=== PATIENT | female | born 1945 | race Caucasian/White ===

== ENCOUNTER 2018-09-15 14:49 | Inpatient (IN) | payer OTHER ==
[~2018-09-15] VITALS: Ht 165.1 cm; Wt 78.9 kg
[2018-09-15 14:49] VITALS: BP 169/87
[2018-09-15 15:10] LABS: ABSOLUTE NEUTROPHILS 5.9 thou/uL (1.4-8.2); BASOPHILS 0.1 % (0.0-2.0); HEMATOCRIT 38.7 % (37.0-47.0); HEMOGLOBIN 13.4 gm/dL (12.0-15.0); LYMPHOCYTES 2.1 % (24.0-44.0); MCH 31.7 pg (26.0-34.0); MCHC 34.5 g/dL (28.0-37.0); MCV 91.9 fL (80.0-100.0); MONOCYTES 0.9 % (1.0-8.0); PLATELET COUNT 167 thou/uL (150-400); POLYS 96.9 % (36.0-66.0); RBC 4.21 mil/uL (4.20-5.00); WBC 6.1 thou/uL (4.0-11.0)
[2018-09-15 15:17] LABS: BE(vivo) -6.4 mmol/L (-2 to +3); HCO3 17.3 mmol/L (22.0-26.0); PCO2 VENOUS 29.6 mmHg (41.0-51.0); PO2 VENOUS 43.4 mmHg (35.0-45.0)
[2018-09-15 15:23] LABS: CALCIUM 9.8 mg/dL (8.5-10.1); POTASSIUM 3.7 mmol/L (3.5-5.1)
[2018-09-15] MEDS ORDERED: LOPRESSOR50 PO (15:27)
[2018-09-15] MEDS ORDERED: PLAVIX 75 MG TA75 M1 PO (15:28)
[2018-09-15] MEDS ORDERED: CRESTOR20 MG PO (15:28)
[2018-09-15] MEDS ORDERED: LISINOPRIL5 MG PO (15:28)
[2018-09-15 15:38] LABS: ALBUMIN 3.8 g/dL (3.4-5.0); TOTAL BILIRUBIN 1.9 mg/dL (<0.1-1.0); TOTAL PROTEIN 8.1 g/dL (6.4-8.2); TROPONIN-I 0.08 ng/mL (<0.06)
[2018-09-15 18:10] VITALS: BP 142/67
[2018-09-15 18:31] VITALS: BP 93/47
[2018-09-15 18:41] VITALS: BP 95/53
[2018-09-15 21:30] VITALS: BP 105/56
--- NOTE | 2018-09-16 04:00 | NUR ---
Patient making slow progress towards outcome goals. No active signs of bleeding. Kept NPO, mouth swabs to keep mouth moist. Urine output concentrated. IVFluids and Protonix drip infusing.
[2018-09-16 04:48] LABS: HEMATOCRIT 31.1 % (37.0-47.0); HEMOGLOBIN 10.8 gm/dL (12.0-15.0); MCH 31.8 pg (26.0-34.0); MCHC 34.7 g/dL (28.0-37.0); MCV 91.6 fL (80.0-100.0); RBC 3.39 mil/uL (4.20-5.00); RDW 14.5 % (10.5-14.5); WBC 8.3 thou/uL (4.0-11.0)
[2018-09-16 05:01] LABS: CALCIUM 8.6 mg/dL (8.5-10.1); CREATININE 1.6 mg/dL (0.6-1.0); POTASSIUM 3.8 mmol/L (3.5-5.1)
[2018-09-16 07:20] VITALS: BP 128/46
--- NOTE | 2018-09-16 10:27 | EKG ---
[address] [place] [address] ELECTROCARDIOGRAM REPORT Name: CRISTIANO JOSHI Room #: 352-P ADM IN M.R.#: [id number] ������������������ Admission: 09/15/18 ������������������ Attend Phys: Georges Poe MD Discharge: ������������������ Date of : 45 Report #: [id number] ����������������������������������������������������������������� [id number] THIS REPORT FOR: //name// [facility] ED Test Date: 2018-09-15 Test Time: 14:54:06 Pat Name: CRISTIANO JOSHI Department: Room: [facility] Gender: F Manager Group Home: : 1945 Requested By: Brenda Allen Order Number: [id number] MD: Louis Gallego Measurements Intervals [place] Rate: 119 P: 61 [place]: 171 QRS: 7 QRSD: 81 T: 85 QT: 297 QTc: 418 Interpretive Statements Sinus tachycardia Borderline repolarization abnormality Compared to ECG 07/10/2003 21:57:55 heart rate has increased Nonspecific ST segment abnormality is present Electronically Signed On 09-16-2018 10:27:23 CDT by Louis Gallego [email or web address] ��������������������������������������������� <ELECTRONICALLY SIGNED> ���������������������������������������� By: Louis Gallego MD, [facility] ��������������������������������������������� 09/16/18 1027 145 53 Louis Gallego MD, [facility] /EPI
--- NOTE | 2018-09-16 14:02 | NUR ---
PATIENT HAS SLEPT PART OF THE DAY. SHE DID COMPLAIN OF LOWER BACK PAIN THIS AM AND PRN PAIN MED WAS ADMINISTERED UP TO TWO TIMES BEFORE SHE HAD RELIEF. SHE IS ALERT ORIENTED X4. WILL BE HAVING EGD IN AM. EXPLAINED SHE WILL BE NPO POST MIDNIGHT. CONT TO PROGRESS TOWARDS DISCHARGE GOALS.
[2018-09-16 17:12] VITALS: BP 124/55
[2018-09-16 20:56] VITALS: BP 135/53
[2018-09-16 23:20] VITALS: BP 143/60
[2018-09-17 04:08] LABS: HEMATOCRIT 28.9 % (37.0-47.0); HEMOGLOBIN 10.1 gm/dL (12.0-15.0); MCH 31.7 pg (26.0-34.0); MCHC 34.8 g/dL (28.0-37.0); MCV 91.1 fL (80.0-100.0); RBC 3.17 mil/uL (4.20-5.00); RDW 14.4 % (10.5-14.5); WBC 6.7 thou/uL (4.0-11.0)
[2018-09-17 04:17] VITALS: BP 145/72
[2018-09-17 04:19] LABS: ALBUMIN 2.7 g/dL (3.4-5.0); CALCIUM 8.4 mg/dL (8.5-10.1); CREATININE 1.2 mg/dL (0.6-1.0); POTASSIUM 3.3 mmol/L (3.5-5.1); TOTAL BILIRUBIN 1.8 mg/dL (<0.1-1.0); TOTAL PROTEIN 6.4 g/dL (6.4-8.2)
--- NOTE | 2018-09-17 04:22 | NUR ---
Patient making slow progress towards outcome goals. No active signs of bleeding. Low grade temp, positive blood culture, foul smelling urine. Nelia ETIENNEN notified. Started on IV anitbiotics. NPO after MN for EGD. Continues to C/O nausea ans neck pain. Nausea relief from Zofran. Sleeps after Fentanyl. Bp stable. High fall risks, calls appropriate for needs.
[2018-09-17 07:31] VITALS: BP 148/71
[2018-09-17 10:03] LABS: URINE BLOOD 2+ (Negative); URINE CLARITY CLEAR; URINE COLOR YELLOW; URINE GLUCOSE-RANDOM* NEGATIVE (Negative); URINE KETONES 1+ (Negative); URINE LEUKOCYTES-REFLEX NEGATIVE (Negative); URINE NITRITE-REFLEX NEGATIVE (Negative); URINE PROTEIN (DIPSTICK) 2+ (Negative); URINE SPECIFIC GRAVITY 1.025 (1.005-1.035); URINE UROBILINOGEN >= 8.0 E.U./dl (0.2-1.0)
[2018-09-17 10:23] LABS: ICTOTEST (BILI CONFIRMATORY) Negative (Negative); URINE BILIRUBIN NEGATIVE (Negative)
[2018-09-17 10:26] LABS: BACTERIA-REFLEX 1-9 Few /HPF (None Seen); CASTS None Seen /LPF (None Seen); CRYSTALS None Seen /LPF (None Seen); SQUAMOUS 0-3 Few /LPF (0-3); URINE RBC 0-2 Rare /HPF (0-2); URINE WBC-REFLEX 0-5 Rare /HPF (0-5)
--- NOTE | 2018-09-17 14:47 | NUR ---
INITIAL ASSESSMENT: SW reviewed chart and opened case due to length of stay. Pt was admitted from home due to hematemesis. Pt was scheduled to have an EGD today per GI. When pt was in GI lab, pt went into A-fib with RVR. Cardiology consulted. Meds being adjusted. Will attempt EGD tomorrow. SW met with pt, spouse and family at bedside. Introduced role of SW. Pt is alert/orientated x 4. Pt report she lives at home with her , who is in good health. Prior to admission, pt was independent with ADLs. No use of DME. No hx of HH services or SNF/Rehab placement. Pt's PCP is Dr. Francisca Dickson. Plan is for pt to discharge home when medically stable. SW is following to assist as needed with discharge planning.
[2018-09-17 15:37] VITALS: BP 130/69
--- NOTE | 2018-09-17 17:19 | NUR ---
Assumed patient care at 0700. a/o x4. egd on hold due to hr went to 140-150. cardioloy consulted. c/o back pain. up with stb assisted. slowly towards poc goals.
--- NOTE | 2018-09-17 18:06 | EKG ---
[address] [address] ELECTROCARDIOGRAM REPORT Name: CRISTIANO JOSHI Room #: 352-P ADM IN M.R.#: [id number] ������������������ Admission: 09/15/18 ������������������ Attend Phys: Georges Poe MD Discharge: ������������������ Date of : 45 Report #: [id number] ����������������������������������������������������������������� [id number] THIS REPORT FOR: //name// [facility] Test Date: 2018-09-17 Test Time: 12:09:53 Pat Name: CRISTIANO JOSHI Department: Room: 352 Gender: F Grader Marker: RUBY POWELL : 1945 Requested By: Gavino Renae Order Number: [id number] MD: Linwood Prince Measurements Intervals [place] Rate: 94 P: 57 [place]: 139 QRS: -3 QRSD: 84 T: 30 QT: 359 QTc: 449 Interpretive Statements Sinus tachycardia Atrial premature complex Anteroseptal infarct, age indeterminate Compared to ECG 09/15/2018 14:54:06 Atrial premature complex(es) now present Myocardial infarct finding now present Electronically Signed On 09-17-2018 18:06:24 CDT by Linwood Prince [email or web address] ��������������������������������������������� <ELECTRONICALLY SIGNED> ���������������������������������������� By: Linwood Prince MD ��������������������������������������������� 09/17/18 1806 1209 1209 Linwood Prince MD /EPI
--- NOTE | 2018-09-17 18:09 | EKG ---
[address] [address] ELECTROCARDIOGRAM REPORT Name: CRISTIANO JOSHI Room #: 352-P ADM IN M.R.#: [id number] ������������������ Admission: 09/15/18 ������������������ Attend Phys: Georges Poe MD Discharge: ������������������ Date of : 45 Report #: [id number] ����������������������������������������������������������������� [id number] THIS REPORT FOR: //name// [facility] Test Date: 2018-09-17 Test Time: 17:46:01 Pat Name: CRISTIANO JOSHI Department: Room: 352 Gender: F Internal Sales Engineer: Jojo DASILVA : 1945 Requested By: Ava Koo Order Number: [id number] MD: Linwood Prince Measurements Intervals [place] Rate: 106 P: [place]: QRS: -1 QRSD: 87 T: 30 QT: 339 QTc: 451 Interpretive Statements Atrial fibrillation Compared to ECG 09/15/2018 14:54:06 Sinus tachycardia no longer present Electronically Signed On 09-17-2018 18:09:27 CDT by Linwood Prince [email or web address] ��������������������������������������������� <ELECTRONICALLY SIGNED> ���������������������������������������� By: Linwood Prince MD ��������������������������������������������� 09/17/18 1809 1746 174 Linwood Prince MD /GOPI
[2018-09-17 19:30] VITALS: BP 147/75
[2018-09-17 21:34] VITALS: BP 137/60
[2018-09-18 04:20] VITALS: BP 135/69
--- NOTE | 2018-09-18 05:30 | NUR ---
PATEINT IS ALERT AND ORIENTED. PATIENT IS UP TIMES ONE TO BSC. PATIENT IS ON PRTONIX DRIP. PATIENT IS PENDING EGD TODAY. PATIENTS WAS SVT AT START OF SHIFT. PATIENT WAS GIVEN METOPROLOL AND RATE IMPROVED. PATIENT HAS BEEN NPO SENSE MIDNIGHT. PATIENT HAS HX OF STENT. PATIENT HAD AN EKG - NSR WITH PAC. PATIENTS PAIN IS CONTROLLED WITH PAIN MEDICATION. PATIENT IS RESTING COMORTABLY IN BED. WCM.
[2018-09-18 07:37] VITALS: BP 144/75
--- NOTE | 2018-09-18 09:11 | EKG ---
[address] [address] ELECTROCARDIOGRAM REPORT Name: CRISTIANO JOSHI Room #: 352-P ADM IN M.R.#: [id number] ������������������ Admission: 09/15/18 ������������������ Attend Phys: Georges Poe MD Discharge: ������������������ Date of : 45 Report #: [id number] ����������������������������������������������������������������� [id number] THIS REPORT FOR: //name// 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: Jojo DASILVA : 1945 Requested By: Nelia Vieira Order Number: [id number] MD: Louis Gallego Measurements Intervals [place] Rate: 77 P: 63 ND: 133 QRS: 17 QRSD: 88 T: 58 QT: 361 QTc: 409 Interpretive Statements Sinus rhythm Atrial premature complexes Compared to ECG 09/17/2018 17:46:01 Atrial fibrillation no longer present Electronically Signed On 09-18-2018 9:11:30 CDT by Louis Gallego [email or web address] ��������������������������������������������� <ELECTRONICALLY SIGNED> ���������������������������������������� By: Louis Gallego MD, [facility] ��������������������������������������������� 09/18/18910 07 07 Louis Gallego MD, [facility] /EPI
--- NOTE | 2018-09-18 09:20 | EKG ---
[address] [address] ELECTROCARDIOGRAM REPORT Name: CRISTIANO JOSHI Room #: 352-P ADM IN M.R.#: [id number] ������������������ Admission: 09/15/18 ������������������ Attend Phys: Georges Poe MD Discharge: ������������������ Date of : 45 Report #: [id number] ����������������������������������������������������������������� [id number] THIS REPORT FOR: //name// [facility] Test Date: 2018-09-18 Test Time: 08:03:12 Pat Name: CRISTIANO JOSHI Department: Room: [facility] Gender: F Mentally Impaired Teacher: : 1945 Requested By: Dahlia Doan Order Number: [id number] MD: Louis Gallego Measurements Intervals [place] Rate: 75 P: 60 MA: 121 QRS: 4 QRSD: 89 T: 34 QT: 412 QTc: 461 Interpretive Statements Sinus rhythm Baseline wander in lead(s) V1 Compared to ECG 09/17/2018 17:46:01 Atrial premature complexes no longer present Electronically Signed On 09-18-2018 9:20:31 CDT by Louis Gallego [email or web address] ��������������������������������������������� <ELECTRONICALLY SIGNED> ���������������������������������������� By: Louis Gallego MD, [facility] ��������������������������������������������� [address]5919 2 2 Louis Gallego MD, [facility] /EPI
--- NOTE | 2018-09-18 11:01 | 2DMMODE ---
[facility] [place] [address] 2 D/M-MODE ECHOCARDIOGRAM Name: CRISTIANO JOSHI Domonique Room #: 352-P [facility] IN [facility].#: [id number] ������������� Admission: 09/15/18 ������������� Attend Phys: Georges Poe MD Discharge: ��� ������������� ��� Date of : 45 Date of Service: 09/18/18 1101 �� Report #: [id number] �������� ��������������������������������������������[id number] THIS REPORT FOR: //name// APPROVED REPORT Study performed: 09/18/2018 09:41:52 EXAM: Comprehensive 2D, Doppler, and color-flow Echocardiogram Patient Location: Bedside Room #: [facility] Status: routine BSA: 1.86 HR: 70 bpm BP: 144/75 mmHg Rhythm: NSR Other Information Study Quality: Adequate Indications Afib with RVR. Hx: CAD, stents, COPD, HTN, HLP. 2D Dimensions RVDd: 33.34 mm IVSd: 11.22 (7-11mm) LVOT Diam: 20.04 (18-24mm) LVDd: 46.19 mm PWd: 10.87 (7-11mm) Ascending Ao: 37.18 (22-36mm) LVDs: 33.70 (25-40mm) Aortic Root: 34.89 mm Volumes Left Atrial Volume (Systole) Single Plane 4CH: 44.30 mL Single Plane 2CH: 46.52 mL LA ESV Index: 26.00 mL/m2 Aortic Valve AoV Peak Fabián.: 1.63 m/s AO Peak Gr.: 10.61 mmHg LVOT Max P.95 mmHg LVOT Max V: 1.22 m/s [place] Vmax: 2.36 cm2 Mitral Valve E/A Ratio: 0.8 MV Decel. Time: 217.12 ms MV E Max Fabián.: 0.78 m/s [facility] [place] [address] 2 D/M-MODE ECHOCARDIOGRAM Name: CRISTIANO JOSHI Room #: 352-P [facility] IN .R.#: [id number] ������������� Admission: 09/15/18 ������������� Attend Phys: Georges Poe MD Discharge: ��� ������������� ��� Date of : 45 Date of Service: 09/18/18 1101 �� Report #: [id number] �������� ��������������������������������������������[id number] MV A Fabián.: 1.02 m/s MV PHT: 62.97 ms IVRT: 72.66 ms Pulmonary Valve PV Peak Fabián.: 0.79 m/s PV Peak Gr.: 2.50 mmHg Pulmonary Vein P Vein S: 0.68 m/s P Vein A: 0.24 m/s P Vein D: 0.48 m/s P Vein A Dur.: 143.0 msec P Vein S/D Ratio: 1.42 Tricuspid Valve TR Peak Fabián.: 3.02 m/s RAP Estimate: 10.00 mmHg TR Peak Gr.: 36.37 mmHg PA Pressure: 47.00 mmHg Left Ventricle The left ventricle is normal size. There is normal LV segmental wall motion. There is normal left ventricular wall thickness. Left ventricular systolic function is normal. LVEF is 55-60%. Mild diastolic dysfunction is present (impaired relaxation pattern). Right Ventricle The right ventricle is normal size. The right ventricular systolic function is normal. Atria The left atrium size is normal. The right atrium size is normal. Aortic Valve The Aortic valve is sclerotic. Mild aortic regurgitation. There is no aortic valvular stenosis. Mitral Valve Mitral valve leaflets are mildly thickened. Mild to moderate mitral annular calcification. Mild mitral regurgitation. No evidence of mitral valve stenosis. Tricuspid Valve The tricuspid valve is normal in structure. Moderate to severe tricuspid regurgitation. Estimated PAP is 45-50mmHg. Pulmonic Valve [address] [address] 2 D/M-MODE ECHOCARDIOGRAM Name: CRISTIANO JOSHI Room #: 352-P [facility] IN [facility]#: [id number] ������������� Admission: 09/15/18 ������������� Attend Phys: Georges Poe MD Discharge: ��� ������������� ��� Date of : 45 Date of Service: 09/18/18 1101 �� Report #: [id number] �������� ��������������������������������������������[id number] The pulmonary valve is normal in structure. Trace pulmonic regurgitation. Great Vessels The aortic root is normal in size. The ascending aorta is normal in size. IVC is normal in size and collapses >50% with inspiration. Pericardium There is no pericardial effusion. <Conclusion> The left ventricle is normal size. LVEF is 55-60%. The Aortic valve is sclerotic. Mild aortic regurgitation. Mitral valve leaflets are mildly thickened. Mild to moderate mitral annular calcification. Mild mitral regurgitation. The tricuspid valve is normal in structure. Moderate to severe tricuspid regurgitation. Estimated PAP is 45-50mmHg. There is no pericardial effusion. ��������������������������������������������� <ELECTRONICALLY SIGNED> ���������������������������������������� By: Osmani Bearden MD ��������������������������������������������� 09/18/18 1101 1101 110 Osmani Bearden MD /INF
[2018-09-18] MEDS ORDERED: TOPROL XL100 MG PO (12:13)
[2018-09-18 16:24] VITALS: BP 138/69
--- NOTE | 2018-09-18 16:41 | NUR ---
SW reviewed chart and spoke with nursing and attending physician. Pt had EGD today. Discharge home is anticipated for tomorrow. [facility] is following to assist as needed with discharge planning.
--- NOTE | 2018-09-18 17:34 | NUR ---
ASSUMED PATIENT CARE AT 0700. A/O X4. TOLERATED EGD TODAY AND FULL LIQUID DIET. PAIN MED GIVEN NEED. PROGRESSING TOWARDS POC GOALS.
[2018-09-18 19:10] VITALS: BP 148/73
[2018-09-19 03:40] VITALS: BP 134/67
[2018-09-19 07:41] VITALS: BP 145/71
[2018-09-19 09:55] LABS: HEMATOCRIT 29.4 % (37.0-47.0); HEMOGLOBIN 10.2 gm/dL (12.0-15.0); MCH 31.5 pg (26.0-34.0); MCHC 34.7 g/dL (28.0-37.0); MCV 90.8 fL (80.0-100.0); RBC 3.24 mil/uL (4.20-5.00); RDW 14.3 % (10.5-14.5); WBC 6.9 thou/uL (4.0-11.0)
[2018-09-19 11:40] VITALS: BP 143/74
[2018-09-19] MEDS ORDERED: ASPIRIN81 M2 PO (12:53)
[2018-09-19] MEDS ORDERED: MIRALAX17 GM PO (12:53)
[2018-09-19] MEDS ORDERED: PROTONIX40 M1 PO (12:53)
--- NOTE | 2018-09-19 15:22 | NUR ---
DISCHARGE NOTE: SW reviewed chart and spoke with nursing and attnding physician. Pt is medically stable for discharge home today. No SW discharge needs identified at this time. Pt's family to provide transportation home. SW is available to assist should needs arise.
--- NOTE | 2018-09-19 16:06 | PATH ---
[facility] [address] [place] [address] PATHOLOGY RPT PROCEDURE Name: ANNMARIE ROBLEDO Domonique Room #: 352-P ADM IN M.R.#: [id number] ������������������ Admission: 09/15/18 ������������������ Date of : 45 Discharge: Report #: [id number] Path Case #: [id number] [facility] Accession Number: [id number] . 01 Material submitted: . stomach - BX ANTRUM R/O H. PYLORI . 01 Clinical history: . Pre-OP DX: Hematemesis Post-OP DX: Esophagitis, gastritis, hiatal hernia . 02 Diagnosis: Gastric mucosa, antrum R/O H. pylori, endoscopic biopsy: - Mild reactive gastropathy. - Negative for intestinal metaplasia or atrophy. - Negative for Helicobacter pylori (properly controlled immunohistochemical stain performed). (IUV:fabián; 09/19/2018) QMS/09/19/2018 . 02 Electronically signed: . Carina Masterson MD, Pathologist NPI- [id number] . 01 Gross description: . Received in formalin labeled "Annmarie Robledo, BX antrum, rule out H. pylori," is a single segment of gutierrez soft tissue measuring 0.5 cm in maximum dimension. The specimen is entirely submitted in cassette A1. (TSD; 09/18/2018) TOB/TOB . 02 Pathologist provided ICD-10: K31.9 . 02 CPT . 432678, R28227 Specimen Comment: A courtesy copy of this report has been sent to Specimen Comment: [phone], , . Specimen Comment: Report sent to ,DR FANG / DR BECKMAN Performed at: [address], [place] [id number] MD Michael Martini MD Phone: [phone] Performed at: [address] [id number] MD Carina Masterson MD Phone: [phone]
[2018-09-19 17:11] VITALS: BP 144/67
[2018-09-19 18:38] VITALS: BP 144/67
--- NOTE | 2018-09-19 19:01 | NUR ---
pt stable for d/c. understanding and agreeable with d/c instructions. all questions answered. unable to get transportation until 2130 from . will monitor until discharge.
--- NOTE | 2018-09-20 10:50 | HC ---
[facility] [place] [address] CONSULTATION Name: CRISTIANO JOSHI Room #: 352-P [facility]..#: [id number] Admission: 09/15/18 ������������������ Attend Phys: Georges Poe MD Discharge: 09/19/18 ������������������ Date of : 45 Report #: [id number] THIS REPORT FOR: //name// CC: Georges Dickson MD DATE OF SERVICE: 09/16/2018 GASTROINTESTINAL CONSULTATION REASON FOR CONSULTATION: The patient is a 73-year-old woman with hematemesis. HISTORY OF PRESENT ILLNESS: This 73-year-old woman does have a previous GI history. Unfortunately, she is a poor historian and does not have a whole lot with regards to details. She has been seen at [facility] in the past, possibly several years ago for problems with diarrhea. She did have a colonoscopy several years ago. She reports she also had some rectal bleeding. She said she was given a diagnosis, but she cannot tell me the name of that diagnosis. She does report she does not take any medicines for her colon. Many records have been purged from the computer database, but there is a path report from 03/2001. Apparently, she had a colonoscopy, Dr. Jose Brooks, small adenomas removed at that time. It is also noted on the path report diarrhea was listed as well. She reports that she does have intermittent problems with diarrhea. It is usually related to dietary discretion, in particular fatty foods. She was well until about 2 days ago when she had the sudden onset of nausea. She had some chills, but she does not recall she had a fever. She also developed increasing shortness of breath at that time. She does have a history of COPD. She said she has had multiple episodes of vomiting over 2 days and did vomit up bright red blood. She said it came up in clumps. She does not have any abdominal pain. However, she generally uses ibuprofen and takes four nightly for feet pain. Recently, she has reduced that to 2 nightly. She does not take any stomach medications. In addition she did have a recent nuclear stress test, which was abnormal. She is not sure why she had a nuclear stress, possibly an abnormal EKG. Regardless, she was seen at [facility] and had a stent placed 4 weeks ago. She has been on Plavix. She has not had any chest pain. She does have a longstanding history of cigarette smoking and does have a history of COPD. She has emphysematous changes on her CT. She presented with shortness of breath and she had a V/Q scan, which was negative. Interestingly, she reports that her shortness of breath is better today. [facility] [address] [place] [address] CONSULTATION Name: CRISTIANO JOSHI Room #: 352-P [facility] IN M.R.#: [id number] Admission: 09/15/18 ������������������ Attend Phys: Georges Poe MD Discharge: 09/19/18 ������������������ Date of : 45 Report #: [id number] She presented to the Emergency Room last evening. Laboratory studies revealed normal electrolytes. Her creatinine was 2 and today with hydration is down to 1.6. BUN was 13, today it is 31. She did have an elevated AST of 47. Her ALT was in the normal range at 51. Alkaline phosphatase is mildly elevated at 165, it as noted on the CT she does have evidence of fatty liver disease. She does not consume alcohol. She is not aware of any liver problems in the past. Ultrasound on this admission does reveal evidence of cholelithiasis without evidence of cholecystitis. Since admission to the hospital she has not had any further emesis or hematemesis. She has had no stools since her admission. She has not had any bloody stools or black stools recently. PAST MEDICAL HISTORY: Coronary artery disease with recent intracoronary stent placement. She has osteoarthritis. She also is known to have diverticular disease and colon polyps. She has had low back spasm as well. She has chronic pain in her feet. PAST SURGICAL HISTORY: Hysterectomy in 1991, colonoscopy within the past year. She has also had sinus surgery, breast biopsy for benign lesions. She has had tonsillectomy. She has had D and C x 3. ALLERGIES: She is dizzy with NAPROSYN. USUAL HOME MEDICATIONS: She cannot recite them from memory, but on the records in the computer she takes Lopressor 75 mg daily, Crestor 20 mg daily, Zestril 5 mg daily, Plavix 75 mg daily and ibuprofen 2 to 4 at bedtime. FAMILY HISTORY: No family history of colon cancer or ulcer disease or inflammatory disease of the colon. Her son has GI issues which were of an uncertain diagnosis. SOCIAL HISTORY: , children in good health. She quit smoking 4 weeks ago. She rarely consumes alcohol. REVIEW OF SYSTEMS: GENERAL: No change in weight. She has not had fever, but she did have chills recently. HEENT: No change in vision, hearing, or sores in the mouth. She reports she does have some hearing difficulties. PULMONARY: Chronic obstructive pulmonary disease related to cigarette smoking, shortness of breath this admission, which is improved today. CARDIOVASCULAR: Recent stent placement. No chest pain at this time. She continues on Plavix. GASTROINTESTINAL: Nausea, vomiting, hematemesis since admission, rectal bleed [facility] [address] [place] [address] CONSULTATION Name: CRISTIANO JOSHI Room #: 352-P [facility] IN [facility].#: [id number] Admission: 09/15/18 ������������������ Attend Phys: Georges Poe MD Discharge: 09/19/18 ������������������ Date of : 45 Report #: [id number] in the past, resolved. History of colon polyps, also known diverticular disease. GENITOURINARY: Previous hysterectomy, previous benign breast lesion removed. Without dysuria, pyuria, kidney stones, kidney tract infections. MUSCULOSKELETAL: Arthritis in hips and pain in her feet. SKIN: Without rashes. PSYCHIATRIC: No depression, anxiety or bipolar illness. ENDOCRINE: She is not aware of diabetes or thyroid problems. No change in weight. HEMATOLOGIC: No bleeding, bruising, or neoplasms. PHYSICAL EXAMINATION: GENERAL: The patient is a well-developed, well-nourished, obese woman in no acute distress. VITAL SIGNS: Blood pressure 120/46, temperature 99, pulse rate of 54, respiration is 12 this morning, she was as high as 42 last evening. HEENT: Anicteric. Pupils equal and round. Oropharynx clear. NECK: Supple, without thyromegaly. CHEST: Clear. HEART: Regular rate and rhythm. S1, S2. ABDOMEN: Overweight. Normal bowel sounds, soft, nontender, without hepatosplenomegaly or masses. RECTAL: Not done. EXTREMITIES: Without cyanosis, clubbing, edema. NEUROLOGIC: Oriented to person, place, and time. NEUROLOGIC: Moves all 4 extremities well. LABORATORY DATA: In addition to above, hemoglobin was 13.4 when she was admitted, 10.8 today with hydration. White count of 8.3, platelet count was 167 yesterday, it is now down to 133 today. Venous blood gas yesterday revealed a bicarb is 17.3, lactate of 5.24, carboxyhemoglobin of 2.1. Also noted that her troponin was 0.08. BNP was 2473. ASSESSMENT: 1. Hematemesis. 2. Nausea and vomiting associated with chills. 3. Intermittent diarrhea, questionably irritable bowel syndrome. 4. Abnormal liver function studies with evidence of fatty liver disease on CT. 5. Obesity. 6. Coronary artery disease with recent stent placement, on Plavix. 7. Diverticular disease. 8. Degenerative joint disease with daily use of ibuprofen. 9. Acute kidney injury, likely secondary to nausea and vomiting. COMMENT: She has not had any further hematemesis or bloody stools. There has been a drop in her hemoglobin. However, she had not eaten and was having [address] [address] CONSULTATION Name: CRISTIANO JOSHI Room #: 352-P [facility] IN ..#: [id number] Admission: 09/15/18 ������������������ Attend Phys: Georges Poe MD Discharge: 09/19/18 ������������������ Date of : 45 Report #: [id number] nausea, vomiting 2 days and I suspect at least part of this is prerenal. She certainly risk ulcer disease with the use of ibuprofen. RECOMMENDATIONS: 1. The patient is hungry. We will try to clear liquids today. 2. Plan for upper endoscopy tomorrow or sooner on an urgent basis as needed. 3. Continue pantoprazole. 4. Continue ondansetron, which is helping her nausea. 5. Monitor liver function studies. 6. Weight reduction will be helpful for multiple reasons. ��������������������������������������������� <ELECTRONICALLY SIGNED> ���������������������������������������� By: Savage Hopper MD ��������������������������������������������� 09/20/18 1050 1015 21 Savage Hopper MD /nt
== END 2018-09-19 21:18 | disposition home or self-care (01) | DRG 380 ==
LOC: ER 14:49 → 3W 17:24 → EROBS 17:24 → 3W 18:19
PROVIDERS: Nurse Practitioner Gerontology; Specialist; Student in an Organized Health Care Education/Training Program; ADMIT Hospitalist
PROC: 0DB68ZX Excision of Stomach, Via Natural or Artificial Opening Endoscopic, Diagnostic (ICD-10-PCS; principal; 2018-09-18)
DX: K22.11 Ulcer of esophagus with bleeding (principal); N17.0 Acute kidney failure with tubular necrosis; E87.2 Acidosis; K29.71 Gastritis, unspecified, with bleeding; M16.0 Bilateral primary osteoarthritis of hip; I25.10 Atherosclerotic heart disease of native coronary artery without angina pectoris; K76.0 Fatty (change of) liver, not elsewhere classified; E66.9 Obesity, unspecified; E78.5 Hyperlipidemia, unspecified; R29.6 Repeated falls; N18.9 Chronic kidney disease, unspecified; R00.0 Tachycardia, unspecified; D64.9 Anemia, unspecified; Z71.6 Tobacco abuse counseling; K31.9 Disease of stomach and duodenum, unspecified; K57.31 Diverticulosis of large intestine without perforation or abscess with bleeding; I12.9 Hypertensive chronic kidney disease with stage 1 through stage 4 chronic kidney disease, or unspecified chronic kidney disease; I48.0 Paroxysmal atrial fibrillation; K20.9 Esophagitis, unspecified; K44.9 Diaphragmatic hernia without obstruction or gangrene; Z90.710 Acquired absence of both cervix and uterus; Z88.6 Allergy status to analgesic agent; Z86.010 Personal history of colon polyps; Z68.29 Body mass index [BMI] 29.0-29.9, adult; Z95.5 Presence of coronary angioplasty implant and graft; Z79.899 Other long term (current) drug therapy; Z87.891 Personal history of nicotine dependence; Z79.82 Long term (current) use of aspirin
CPT/HCPCS: 10879; 62110; 62900; 70005

== ENCOUNTER 2019-03-04 15:30 | Emergency (ER) | payer OTHER ==
[~2019-03-04] VITALS: Ht 165.1 cm; Wt 79.8 kg
[~2019-03-04 15:30] MED LIST: ASPIRIN81 M2 PO; CRESTOR20 MG PO; LISINOPRIL5 MG PO; LOPRESSOR50 PO; MIRALAX17 GM PO; PLAVIX 75 MG TA75 M1 PO; PROTONIX40 M1 PO; TOPROL XL100 MG PO
[2019-03-04] MEDS ORDERED: ROSUVASTATIN CA20 MG PO (15:51)
[2019-03-04] MEDS ORDERED: NORVASC5 MG PO (15:52)
[2019-03-04 16:29] LABS: ABSOLUTE NEUTROPHILS 6.2 thou/uL (1.4-8.2); BASOPHILS 0.4 % (0.0-2.0); EOSINOPHILS 2.3 % (0.0-3.0); HEMATOCRIT 42.9 % (37.0-47.0); HEMOGLOBIN 14.5 gm/dL (12.0-15.0); LYMPHOCYTES 15.6 % (24.0-44.0); MCH 31.7 pg (26.0-34.0); MCHC 33.8 g/dL (28.0-37.0); MCV 93.8 fL (80.0-100.0); PLATELET COUNT 257 thou/uL (150-400); POLYS 73.7 % (36.0-66.0); RBC 4.58 mil/uL (4.20-5.00); RDW 14.6 % (10.5-14.5); WBC 8.4 thou/uL (4.0-11.0)
[2019-03-04 16:31] LABS: ANION GAP 9 mmol/L (7-16); BUN 16 mg/dL (7-18); CHLORIDE 100 mmol/L (98-107); CO2 30 mmol/L (21-32); GLUCOSE 183 mg/dL (74-106); POTASSIUM 3.6 mmol/L (3.5-5.1); SODIUM 139 mmol/L (136-145)
[2019-03-04 16:42] LABS: ALBUMIN 4.5 g/dL (3.4-5.0); MAGNESIUM 2.3 mg/dL (1.8-2.4); SGOT 25 U/L (15-37); SGPT 40 U/L (30-65); TOTAL BILIRUBIN 0.5 mg/dL (<0.1-1.0); TOTAL PROTEIN 8.6 g/dL (6.4-8.2); TROPONIN-I <0.06 ng/mL (<0.06)
[2019-03-04] MEDS ORDERED: TRAMADOL 50 MG50 MG PO (17:53)
[2019-03-04] MEDS ORDERED: ONDANSETRON ODT4 MG PO (17:53)
[2019-03-04] MEDS ORDERED: CLONIDINE0.1 PO (17:53)
[2019-03-04 17:56] LABS: URINE BILIRUBIN NEGATIVE (Negative); URINE BLOOD NEGATIVE (Negative); URINE CLARITY CLEAR; URINE COLOR YELLOW; URINE GLUCOSE-RANDOM* NEGATIVE (Negative); URINE KETONES NEGATIVE (Negative); URINE LEUKOCYTES-REFLEX NEGATIVE (Negative); URINE NITRITE-REFLEX NEGATIVE (Negative); URINE PROTEIN (DIPSTICK) NEGATIVE (Negative); URINE UROBILINOGEN 0.2 E.U./dl (0.2-1.0)
[2019-03-04] MEDS ORDERED: VALIUM2 MG PO (18:05)
[2019-03-04 18:38] VITALS: BP 136/75
--- NOTE | 2019-03-05 08:37 | EKG ---
[address] [place] [address] ELECTROCARDIOGRAM REPORT Name: CRISTIANO JOSHI [id number] Admission: 03/04/19 Attend Phys: Discharge: 03/04/19 Date of : 45 Report #: [id number] THIS REPORT FOR: //name// [facility] ED Test Date: 2019-03-04 Test Time: 15:59:33 Pat Name: CRISTIANO JOSHI Department: Room: Gender: F Instrumentation And Controls Technician: [facility] : 1945 Requested By: Dick Rojas Order Number: [id number] MD: Linwood Prince Measurements Intervals [place] Rate: 66 P: 46 DE: 150 QRS: -17 QRSD: 92 T: 63 QT: 399 QTc: 418 Interpretive Statements Sinus rhythm Consider left ventricular hypertrophy Inferior infarct, old Compared to ECG 09/18/2018 08:03:12 Myocardial infarct finding now present Electronically Signed On 03-05-2019 8:36:44 CDT by Linwood Prince [email or web address] <ELECTRONICALLY SIGNED> By: Linwood Prince MD 03/05/19 0836 1559 1559 Linwood Prince MD /GOPI
== END 2019-03-04 18:48 | disposition home or self-care (01) ==
LOC: ER 15:30
PROVIDERS: Emergency Medicine
DX: I10 Essential (primary) hypertension (principal); R42 Dizziness and giddiness; M54.2 Cervicalgia; R11.0 Nausea; M16.0 Bilateral primary osteoarthritis of hip; Z95.2 Presence of prosthetic heart valve; Z90.89 Acquired absence of other organs; Z90.710 Acquired absence of both cervix and uterus; Z88.5 Allergy status to narcotic agent; Z88.1 Allergy status to other antibiotic agents; Z91.018 Allergy to other foods

== ENCOUNTER → 2019-12-27 | Outpatient (CLI) | payer OTHER ==
[~2019-12-27] MED LIST changes: +ASA81BEC PO; +CLONIDINE0.1 PO; +NORVASC5 MG PO; +ONDANSETRON ODT4 MG PO; +ROSUVASTATIN CA20 MG PO; +SPIRONOLACTONE25 MG PO; +TRAMADOL 50 MG50 MG PO; +TYLENOL ARTHRI650 MG PO; +VALIUM2 MG PO
== END ==
LOC: LAB 14:12
PROVIDERS: ATTEND Student in an Organized Health Care Education/Training Program
DX: Z01.812 Encounter for preprocedural laboratory examination (principal); Z20.828 Contact with and (suspected) exposure to other viral communicable diseases

== ENCOUNTER → 2019-12-31 | Outpatient (CLI) | payer OTHER ==
[~2019-12-31] VITALS: Ht 165.1 cm; Wt 84.8 kg
--- NOTE | 2020-01-01 14:07 | PATH ---
[facility] [address] [address] PATHOLOGY RPT PROCEDURE Name: ANNMARIE ROBLEDO Domonique Room #: REG JOESPH Arnold.#: [id number] Admission: 12/31/19 Date of : 45 Discharge: Report #: [id number] Path Case #: [id number] [facility] Accession Number: [id number] . 01 Material submitted: . PART A: stomach - BX OF ANTRUM PART B: esophagus - BX OF DISTAL ESOPHAGUS. Modifiers: distal . 01 Clinical history: . A. R/O H. PYLORI B. R/O HOFFMANN'S . 02 Diagnosis: A. Gastric biopsy "biopsy of antrum": - Mild chronic reactive gastropathy. - The immunoperoxidase stain for Helicobacter pylori is negative. . B. 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 - There is no evidence of dysplasia or malignancy. (SHA:fabián 01/01/2020) QMS 01/01/2020 1121 Local . 02 Electronically signed: . Renato Vicente MD, Pathologist NPI- [id number] . 01 Gross description: . A. The specimen is received in formalin, labeled "Venkat Annmarie, BX of antrum" and consists of 2 fragments of pink-gutierrez tissue measuring 0.3 x 0.2 cm and 0.5 x 0.3 cm which are entirely submitted in A1. . B. The specimen is received in formalin, labeled "Annmarie Robledo, BX of distal esophagus" and consists of 2 fragments of pink-gutierrez tissue measuring 0.3 x 0.2 cm which are entirely submitted in B1. (SDY; 12/31/2019) SYU/SYU 12/31/2019 1659 Local . 02 Pathologist provided ICD-10: K31.9, K20.9 . 02 CPT . 836123, 653933, K97733 Specimen Comment: A courtesy copy of this report has been sent to [phone], [phone] Specimen Comment: [address] [place] [address] PATHOLOGY RPT PROCEDURE Name: VENKATANNMARIE Room #: REG JOESPH Jorge#: [id number] Admission: 12/31/19 Date of : 45 Discharge: Report #: [id number] Path Case #: [id number] Specimen Comment: Report sent to / DR FANG Specimen Comment: A duplicate report has been generated due to demographic updates. Performed at: [address], [place], [place] [id number] MD Michael Martini MD Phone: [phone] Performed at: [address] [id number] MD Carina Masterson MD Phone: [phone]
== END | disposition home or self-care (01) ==
LOC: GI 07:50
PROVIDERS: ATTEND Internal Medicine Gastroenterology
DX: R12 Heartburn (principal); K29.50 Unspecified chronic gastritis without bleeding; K31.9 Disease of stomach and duodenum, unspecified; K22.2 Esophageal obstruction; K22.70 Barrett's esophagus without dysplasia; K21.0 Gastro-esophageal reflux disease with esophagitis; K44.9 Diaphragmatic hernia without obstruction or gangrene; J44.9 Chronic obstructive pulmonary disease, unspecified; Z98.890 Other specified postprocedural states; Z79.899 Other long term (current) drug therapy; Z90.710 Acquired absence of both cervix and uterus
CPT/HCPCS: 62110; 62900

== ENCOUNTER 2021-03-24 16:49 | Inpatient (IN) | payer OTHER ==
[~2021-03-24] VITALS: Ht 165.1 cm; Wt 76.2 kg
[2021-03-24 17:01] VITALS: BP 128/49
[2021-03-24 18:04] LABS: HEMATOCRIT 38.4 % (37.0-47.0); HEMOGLOBIN 12.8 gm/dL (12.0-15.0); MCH 31.9 pg (26.0-34.0); MCHC 33.2 g/dL (28.0-37.0); PLATELET COUNT 144 thou/uL (150-400); RDW 14.9 % (10.5-14.5); WBC 2.9 thou/uL (4.0-11.0)
[2021-03-24 18:09] LABS: CREATININE 1.3 mg/dL (0.6-1.0); POTASSIUM 3.6 mmol/L (3.5-5.1)
[2021-03-24 18:12] LABS: URINE BLOOD NEGATIVE (Negative); URINE CLARITY CLEAR; URINE COLOR YELLOW; URINE GLUCOSE-RANDOM* NEGATIVE (Negative); URINE KETONES TRACE (Negative); URINE LEUKOCYTES-REFLEX NEGATIVE (Negative); URINE PROTEIN (DIPSTICK) 1+ (Negative); URINE SPECIFIC GRAVITY >= 1.030 (1.005-1.035); URINE UROBILINOGEN 0.2 E.U./dl (0.2-1.0)
[2021-03-24 18:14] LABS: URINE NITRITE-REFLEX POSITIVE (Negative)
[2021-03-24 18:15] LABS: ICTOTEST (BILI CONFIRMATORY) Negative (Negative); URINE BILIRUBIN NEGATIVE (Negative)
[2021-03-24 18:19] LABS: ALBUMIN 3.9 g/dL (3.4-5.0); TOTAL BILIRUBIN 0.5 mg/dL (0.2-1.0); TOTAL PROTEIN 7.9 g/dL (6.4-8.2)
[2021-03-24 18:33] LABS: BACTERIA-REFLEX >30 Many /HPF (None Seen); CASTS None Seen /LPF (None Seen); SQUAMOUS 0-3 Few /LPF (0-3); URINE RBC 1-2 Rare /HPF (NONE SEEN); URINE WBC-REFLEX 0-5 Rare /HPF (0-5)
[2021-03-24 18:34] LABS: CRYSTALS None Seen /LPF (None Seen); MUCUS 0-3 Light strn/LPF (None Seen)
[2021-03-24 19:09] LABS: ABSOLUTE NEUTROPHILS 2.1 thou/uL (1.4-8.2); MYELOCYTES 1 %
--- NOTE | 2021-03-24 19:12 | NUR ---
REPORT GIVEN TO NADER SERRANO AT THIS TIME
[2021-03-24] MEDS ORDERED: METOPROLOL SUCC50 MG PO (21:16)
[2021-03-24] MEDS ORDERED: NORVASC 2.5 MG2.5 MG PO (21:17)
[2021-03-24 21:34] VITALS: BP 130/50
[2021-03-24 22:31] VITALS: BP 123/52
--- NOTE | 2021-03-25 03:45 | NUR ---
PT ARRIVED TO 3W, ADMITTED FROM ED INTO ROOM 355, ARRIVED TO UNIT AT APPROXIMATELY 2220. PT IS A&OX4 WITH PERIODS OF FORGETFULNESS, IS ABLE TO COMMUNICATE ALL WANTS AND NEEDS TO STAFF APPROPRIATELY. SHE HAS BEEN ON ROOM AIR WITH O2 SATS >92%. SINUS RHYTHM ON FOOD SERVICE LEAD. SHE IS UP WITH MINIMAL ASSIST X1 TO THE BEDSIDE COMMODE. COVID POSITIVE, ON ISOLATION FOR SUCH. PT PROVIDED WELCOME PACKET AND GIVEN ORIENTATION TO HER ROOM. ADMISSION ASSESSMENTS COMPLETED. PT REQUESTED MEDICATION TO HELP HER SLEEP. PETROLEUM PRODUCTION ENGINEER NOTIFIED, RECEIVED NEW ORDER FOR MELATONIN PRN. RN RETURNED TO ROOM TO ADMINISTER MEDICATION AND PT WAS ASLEEP WITH EYES CLOSED, RESPIRATIONS EVEN AND UNLABORED. WILL CONTINUE TO OBSERVE FOR CHANGES.
[2021-03-25 04:54] VITALS: BP 120/53
[2021-03-25 06:55] LABS: HEMATOCRIT 35.6 % (37.0-47.0); HEMOGLOBIN 12.1 gm/dL (12.0-15.0); MCHC 33.9 g/dL (28.0-37.0); RBC 3.71 mil/uL (4.20-5.00)
[2021-03-25 06:57] LABS: MCH 32.5 pg (26.0-34.0); PLATELET COUNT 140 thou/uL (150-400); RDW 14.6 % (10.5-14.5)
[2021-03-25 07:02] LABS: WBC 1.8 thou/uL (4.0-11.0)
--- NOTE | 2021-03-25 07:06 | EKG ---
[address] [place] [address] ELECTROCARDIOGRAM REPORT Name: CRISTIANO JOSHI Room #: 355-P ADM IN M.R.#: [id number] Admission: 03/24/21 Attend Phys: Georges Poe MD Discharge: Date of : 45 Report #: [id number] [facility] ED Test Date: 2021-03-24 Test Time: 17:08:48 Pat Name: CRISTIANO JOSHI Department: Room: [facility] Gender: F Managing Consultant Clinical Professor: KEVIN : 1945 Requested By: Latoya Bowen Order Number: [id number] : Chai Alonso Measurements Intervals [place] Rate: 78 P: 48 VA: 136 QRS: -13 QRSD: 84 T: 72 QT: 373 QTc: 425 Interpretive Statements Sinus rhythm Abnormal R-wave progression, late transition Borderline T abnormalities, lateral leads Compared to ECG 03/04/2019 15:59:33 T-wave abnormality now present Myocardial infarct finding no longer present Electronically Signed On 03-25-2021 7:06:37 DIRECTOR INTERNAL CONTROL by Chai Alonso [email or web address] <ELECTRONICALLY SIGNED> By: Chai Alonso MD, [facility] 03/25/21 0706 1708 170 Chai Alonso MD, [facility] /EPI
[2021-03-25 07:21] LABS: ALBUMIN 3.2 g/dL (3.4-5.0); CALCIUM 8.6 mg/dL (8.5-10.1); POTASSIUM 3.8 mmol/L (3.5-5.1); TOTAL BILIRUBIN 0.3 mg/dL (0.2-1.0); TOTAL PROTEIN 7.1 g/dL (6.4-8.2)
[2021-03-25 07:24] VITALS: BP 118/60
[2021-03-25 10:22] LABS: BE(vivo) -4.2 mmol/L (-2 to +3); HCO3 19.8 mmol/L (22.0-26.0); PCO2 32.8 mmHg (35.0-45.0); PO2 86.5 mmHg (80.0-100.0); pH 7.398 (7.360-7.450); sO2 96.7 % (92.0-98.0)
[2021-03-25 11:24] VITALS: BP 116/54
[2021-03-25 11:24] LABS: ABSOLUTE NEUTROPHILS 1.5 thou/uL (1.4-8.2); ATYPICAL LYMPHS 3 %
--- NOTE | 2021-03-25 12:50 | NUR ---
INITIAL ASSESSMENT: Received consult. SW reviewed chart and spoke with nursing and attending physician. Pt was admitted from home due to COVID pneumonia. Pt placed in Enhanced Isolation. Pt is afebrile and on 2L of O2. Pt is on IV abx and IV steroids. ID consulted. SW spoke with pt via phone. Introduced role of SW. Pt appears to be alert/orientated. Pt's spouse is also hospitalized due to COVID at [facility]. Prior to admission, pt was using a walker. No stair at home. Pt's PCP is Dr. Francisca Dickson. Pt states she was told she will be in the hospital for about 5 days. SW discussed discharge needs for pt and also her . Pt is unsure if pt is able to go home with HH, as they help each other at home. Therapy evals have been ordered for pt. Awaiting therapy notes for pt's spouse. SW is following to assist as needed with discharge planning.
[2021-03-25 16:48] VITALS: BP 128/57
--- NOTE | 2021-03-25 18:32 | NUR ---
PT ALERT AND ORIENTED X 4. PT HAD CRITICAL LAB VALUE THIS AM WITH WBC AT 1.8. PT ON 2 L NC. PT 02 SATS FINE LONG NOT EXERCISING. PT DENIES PAIN AND ANY NEEDS AT THIS TIME. WILL CONTINUE TO MONITOR.
[2021-03-25 19:21] VITALS: BP 118/53
[2021-03-26 04:33] VITALS: BP 115/83
[2021-03-26 06:44] LABS: ABSOLUTE NEUTROPHILS 3.4 thou/uL (1.4-8.2); BASOPHILS 0.1 % (0.0-2.0); HEMATOCRIT 34.5 % (37.0-47.0); HEMOGLOBIN 11.5 gm/dL (12.0-15.0); LYMPHOCYTES 8.2 % (24.0-44.0); MCH 32.1 pg (26.0-34.0); MCHC 33.3 g/dL (28.0-37.0); MCV 96.3 fL (80.0-100.0); MONOCYTES 5.6 % (1.0-8.0); PLATELET COUNT 151 thou/uL (150-400); POLYS 86.1 % (36.0-66.0); RBC 3.58 mil/uL (4.20-5.00); RDW 14.6 % (10.5-14.5); WBC 3.9 thou/uL (4.0-11.0)
[2021-03-26 07:04] LABS: ALBUMIN 3.1 g/dL (3.4-5.0); CALCIUM 8.8 mg/dL (8.5-10.1); POTASSIUM 3.5 mmol/L (3.5-5.1); TOTAL BILIRUBIN 0.3 mg/dL (0.2-1.0); TOTAL PROTEIN 6.7 g/dL (6.4-8.2)
[2021-03-26 07:50] VITALS: BP 125/55
[2021-03-26 11:31] VITALS: BP 134/51
--- NOTE | 2021-03-26 14:36 | NUR ---
SW reviewed chart and spoke with nursing and attending physician. Pt remains in Enhanced Isolation due to COVID. Pt is afebrile and on 2L of O2. Pt is on IV abx, IV steroids and Remdesivir. No weekend discharge planned. SW spoke with pt via phone to provide update. Pt is aware that her fell earlier today. SW discussed the possiblity of pt being in rehab status for additional therapy services. SW explained that pt will need to meet admission criteria for 5N. Pt's verbalized understanding and is agreeable with plan. SW is following to assist as needed with discharge planning.
[2021-03-26 15:50] VITALS: BP 137/54
[2021-03-26 20:40] VITALS: BP 121/44
[2021-03-26 22:50] LABS: ABSOLUTE NEUTROPHILS 3.1 thou/uL (1.4-8.2); BASOPHILS 0.1 % (0.0-2.0); HEMATOCRIT 34.2 % (37.0-47.0); HEMOGLOBIN 11.5 gm/dL (12.0-15.0); LYMPHOCYTES 8.4 % (24.0-44.0); MCH 32.3 pg (26.0-34.0); MCHC 33.7 g/dL (28.0-37.0); MCV 95.7 fL (80.0-100.0); MONOCYTES 7.8 % (1.0-8.0); PLATELET COUNT 163 thou/uL (150-400); POLYS 83.7 % (36.0-66.0); RBC 3.57 mil/uL (4.20-5.00); RDW 14.7 % (10.5-14.5); WBC 3.7 thou/uL (4.0-11.0)
--- NOTE | 2021-03-27 03:48 | NUR ---
PT IS A&OX4 AND ABLE TO COMMUNICATE ALL WANTS AND NEEDS TO STAFF. PT HAS REMAINED ON 1L NC AND O2 SATS HAVE REMAINED >93%. PT IS UP TO BSC WITH MINIMAL ASSIST X1. PT HAS BEGUN COURSE OF IV REMDESIVIR AND CONTINUES ON IV ANTIBIOTICS. NONPRODUCTIVE COUGH NOTED. PER REPORT, PT HAS BEEN HAVING DIARRHEA, BUT SHE HAS NOT HAD ANY EPISODES THUS FAR THIS SHIFT. WILL CONTINUE TO MONITOR FOR CHANGES
[2021-03-27 04:10] VITALS: BP 116/46
[2021-03-27 05:34] LABS: ABSOLUTE NEUTROPHILS 2.4 thou/uL (1.4-8.2); BASOPHILS 0.2 % (0.0-2.0); HEMATOCRIT 33.5 % (37.0-47.0); HEMOGLOBIN 11.5 gm/dL (12.0-15.0); LYMPHOCYTES 13.9 % (24.0-44.0); MCH 32.7 pg (26.0-34.0); MCHC 34.4 g/dL (28.0-37.0); MCV 95.1 fL (80.0-100.0); MONOCYTES 9.8 % (1.0-8.0); PLATELET COUNT 159 thou/uL (150-400); POLYS 76.1 % (36.0-66.0); RBC 3.53 mil/uL (4.20-5.00); RDW 14.6 % (10.5-14.5); WBC 3.2 thou/uL (4.0-11.0)
[2021-03-27 05:51] LABS: ALBUMIN 3.1 g/dL (3.4-5.0); CALCIUM 8.4 mg/dL (8.5-10.1); CREATININE 0.9 mg/dL (0.6-1.0); DIRECT BILIRUBIN 0.1 mg/dL (<0.1-0.2); PHOSPHORUS 3.9 mg/dL (2.6-4.7); POTASSIUM 3.8 mmol/L (3.5-5.1); TOTAL BILIRUBIN 0.3 mg/dL (0.2-1.0); TOTAL PROTEIN 6.1 g/dL (6.4-8.2)
[2021-03-27 07:38] VITALS: BP 132/60
[2021-03-27 11:22] VITALS: BP 116/48
[2021-03-27 15:21] VITALS: BP 118/59
--- NOTE | 2021-03-27 18:45 | NUR ---
PROGRESSING TOWARDS POC GOALS. ON 1L/NC. AMBULATED IN ROOM.
[2021-03-27 21:15] VITALS: BP 118/49
--- NOTE | 2021-03-27 22:48 | NUR ---
PT ALERT AND ORIENTED X4. VSS AFEBRILE. C/O STOMACH ACHE. TYLENOL GIVEN AND SLEEPING PILL AND MECLIZINE GIVEN FOR PT REQUEST. NO S/S DISTRESS.
[2021-03-28 01:05] LABS: HIV ANTIBODY Non Reactive (Non Reactive)
[2021-03-28 05:13] VITALS: BP 119/46
[2021-03-28 06:14] LABS: ALBUMIN 2.9 g/dL (3.4-5.0); ANION GAP 10 mmol/L (7-16); BUN 27 mg/dL (7-18); CALCIUM 8.8 mg/dL (8.5-10.1); CHLORIDE 106 mmol/L (98-107); CO2 24 mmol/L (21-32); CREATININE 0.9 mg/dL (0.6-1.0); DIRECT BILIRUBIN < 0.1 mg/dL (<0.1-0.2); GLUCOSE 137 mg/dL (74-106); PHOSPHORUS 3.6 mg/dL (2.6-4.7); POTASSIUM 3.7 mmol/L (3.5-5.1); SGOT 23 U/L (15-37); SGPT 27 U/L (14-59); SODIUM 140 mmol/L (136-145); TOTAL BILIRUBIN 0.3 mg/dL (0.2-1.0); TOTAL PROTEIN 6.4 g/dL (6.4-8.2)
[2021-03-28 07:42] VITALS: BP 124/57
--- NOTE | 2021-03-28 08:08 | NUR ---
PT ALERT AND ORIENTED X4. SOME MILD CONFUSION AT TIMES. ( SHE ATTEMPTED TO GO TO BR ON HER CHAIR BEFORE NS DIRECTED HER TO BSC) VSS AFEBRILE 95% ON 1LNC. NO S/S DISTRESS.
--- NOTE | 2021-03-28 11:10 | NUR ---
PT OUND AOX3, ON 2LN, SANDRA GARCIA, OOB T CMMODE W/ PERSON ASSITANCE, P URIATMandie AD ED BOWELS.
[2021-03-28 11:45] VITALS: BP 128/54
[2021-03-28 15:57] VITALS: BP 107/47
[2021-03-28 19:44] VITALS: BP 128/68
[2021-03-29 03:54] LABS: ALBUMIN 3.1 g/dL (3.4-5.0); CALCIUM 8.9 mg/dL (8.5-10.1); CREATININE 0.8 mg/dL (0.6-1.0); DIRECT BILIRUBIN 0.1 mg/dL (<0.1-0.2); PHOSPHORUS 3.9 mg/dL (2.5-4.9); POTASSIUM 3.6 mmol/L (3.5-5.1); TOTAL BILIRUBIN 0.4 mg/dL (0.2-1.0); TOTAL PROTEIN 7.1 g/dL (6.4-8.2)
[2021-03-29 05:20] VITALS: BP 135/66
--- NOTE | 2021-03-29 06:13 | NUR ---
PT IS A/0X4 AND TELE SHOWS SB/SR WITH A BBB. UP TO BSC WITH X1 AND HAS SOME STRESS INCONTINENCE. GAVE TYLENOL X1 FOR PAIN IN THE BACK "DUE TO THE BED". VSS.
[2021-03-29 07:35] VITALS: BP 133/59
--- NOTE | 2021-03-29 10:49 | NUR ---
PT Dc FROM OT TODAY, MET ALL GOALS. REFER TO DAILY NOTE TODAY
--- NOTE | 2021-03-29 10:51 | NUR ---
ONCE PT MEDICALLY CLEARED, OK TO GO HOME PER OT
[2021-03-29 12:04] VITALS: BP 121/50
--- NOTE | 2021-03-29 13:45 | NUR ---
HEIDE reviewed chart and spoke with nursing and attending physician. Pt remains in Enhanced Isolation due to COVID. Pt is afebrile and on 1L of O2. Pt is on IV abx and IV steroids. Pt to complete course of Remdesivir today. 5N consulted. Pt is too high level for admission to inpt acute rehab. OT discharged pt. HEIDE spoke with pt via phone to provide update and discuss discharge plan: SNF v. Home with HH. Pt states she feels strong enough to discharge home. HEIDE explained HH services and frequency of visits. Pt's verbalized understanding. Confirmed pt's home address and phone number. Options for HH providers discussed. No preference voiced. SW discussed her 's discharge plan as well. Team conference will be held tomorrow and discharge timeframe will be determined. Pt's would like the same HH provider for her . HEIDE notified [facility] liaison of referrals. HEIDE updated 5N rehab CM. Pt will need rest/exercise oximetry prior to discharge to determine home O2 needs. HEIDE is following to assist as needed with discharge planning.
[2021-03-29 16:42] VITALS: BP 147/59
--- NOTE | 2021-03-29 18:22 | NUR ---
PT ALERT AND ORIENTED TIMES FOUR. VSS, PT C/O PAIN PRN PAIN MEDICATIONS GIVEN TWICE WITH GOOD RELEIF. PT TOLERATES MEDS AND MEALS. PT UP SITTING IN THE CHAIR FOR MOST OF THE SHIFT. WILL CONTINUE TO MONITOR.
[2021-03-29 18:41] LABS: T-SPOT.TB Negative
[2021-03-29 20:10] VITALS: BP 143/53
[2021-03-29] MEDS ORDERED: PLAVIX 75 MG TA75 MG PO (20:44)
[2021-03-30 04:15] VITALS: BP 139/60
--- NOTE | 2021-03-30 05:40 | NUR ---
PT MAKING SLOW PROGRESS TOWARDS GOALS. NO SOA REPORTED WHILE AT REST. PT ABLE TO SPEAK IN FULL SENTENCES W/O SOA. O2 AT 2L PER NC OVERNIGHT.
[2021-03-30 05:41] LABS: ALBUMIN 2.8 g/dL (3.4-5.0); CALCIUM 8.7 mg/dL (8.5-10.1); CREATININE 0.8 mg/dL (0.6-1.0); DIRECT BILIRUBIN 0.1 mg/dL (<0.1-0.2); PHOSPHORUS 3.7 mg/dL (2.5-4.9); POTASSIUM 3.7 mmol/L (3.5-5.1); TOTAL BILIRUBIN 0.3 mg/dL (0.2-1.0); TOTAL PROTEIN 6.3 g/dL (6.4-8.2)
[2021-03-30 07:58] VITALS: BP 138/52
[2021-03-30 11:39] VITALS: BP 137/71
--- NOTE | 2021-03-30 14:16 | NUR ---
HEIDE reviewed chart and spoke with nursing and attending physician. Pt remains in Enhanced Isolation due to COVID. Pt is progressing towards goals for discharge. Pt is afebrile and on 1.5L of O2. Pt is on IV steroids. Pt has completed course of Remdesivir. Discussed with attending physician that pt anisa need a rest/exercise oximetry to determine if home O2 is needed. Pt is too high level for admission to 5N. Recommendation made for pt to discharge home with . [facility] is able to accept pt. SW spoke with pt via phone to discuss discharge plan. Pt is agreeable with discharge plan. Pt states she has not been told when she will discharge home. SW explained that discharge may be as early as tomorrow. Pt is agreeable. HEIDE is following to assist as needed with discharge planning.
[2021-03-30 15:34] VITALS: BP 118/56
[2021-03-30 20:03] VITALS: BP 130/53
[2021-03-31 05:39] VITALS: BP 132/52
--- NOTE | 2021-03-31 06:07 | NUR ---
PT MAKING PROGRESS TOWARDS GOALS. ON O2 At 1.5L PER NC OVERNIGHT. PT STATES THAT SHE FEELS SHE IS BREATHING WELL. HOPES TO BE ABLE TO BE DISCHARGED TODAY.
[2021-03-31 07:43] VITALS: BP 134/62
[2021-03-31 08:45] VITALS: BP 134/62
[2021-03-31] MEDS ORDERED: VITAMIN D325 MC2 PO (10:46)
[2021-03-31] MEDS ORDERED: CHOLESTYRAMINE L4 GM PO (10:46)
[2021-03-31] MEDS ORDERED: PREDNISONE 20 M20 M1 PO (10:46)
[2021-03-31 11:02] VITALS: BP 134/62
[2021-03-31 11:07] VITALS: BP 98/59
[2021-03-31 14:11] VITALS: BP 134/62
--- NOTE | 2021-03-31 15:08 | NUR ---
DISCHARGE NOTE: HEIDE reviewed chart and spoke with nursing and attending physician. Pt is medically stable for discharge home today. Rest/exercise oximetry completed. Pt does not need home O2. HEIDE faxed discharge ppwk to [facility] and spoke with Maxine in intake. Confirmed info was received. HEIDE spoke with pt via phone to discuss discharge plan. Pt is aware and in agreement with discharge plan. Pt states she will have transportation home when ready for discharge. HEIDE updated pt's nurse. Pt's spouse remains in rehab at this time. Contact info for HH placed in pt's discharge summary. No additional SW needs identified at this time. SW is available to assist should needs arise.
--- NOTE | 2021-03-31 15:42 | NUR ---
PATIENT DISCHARGED TO HOME WITH HH. DISCHARGE EDUCATION WAS DONE WITH PATIENT AT BEDSIDE. NO QUESTIONS OR CONERNS WITH EDUCATION. IV AND TELE REMOVED. TAKEN BY WHEELCHAIR DOWNSTAIRS BY STAFF TO FRIEND WAITING IN PRIVATE VEHICLE.
--- NOTE | 2021-04-02 13:50 | HC ---
[facility] [place] [address] CONSULTATION Name: CRISTIANO JOSHI Room #: 355-P [facility] IN [place].#: [id number] Admission: 03/24/21 Attend Phys: Anirudh Mccloud MD Discharge: 03/31/21 Date of : 45 Report #: [id number] THIS REPORT FOR: cc: Francisca Dickson MD, Michelle R. MD Smithson, David G. MD ~ DATE OF SERVICE: 03/29/2021 HISTORY OF PRESENT ILLNESS: The patient is seen in consultation. She is a 76-year-old white female admitted with shortness of breath, noted to be COVID positive, pulmonary infiltrate. Noted to have mild COPD. She was diagnosed with acute hypoxic respiratory failure, COVID-19 pneumonia, has been treated with IV antibiotics. Infectious Disease is involved. She had acute kidney injury that has resolved. She was continued on a combination therapy with antiviral and corticosteroids. She is overall feeling better and we are seeing her in rehabilitation medicine consultation. PAST MEDICAL HISTORY: Includes hypertension, mild COPD, elevated lipids, GERD, low back pain, coronary artery disease, status post stent, mild COPD, bilateral hip and knee degenerative arthritis, exogenous obesity. MEDICATIONS: Please see the full medication listing. ALLERGIES: CODEINE, POTASSIUM CHLORIDE, BERRIES AND SULFA. SOCIAL HISTORY: Lives in a house with her , 1-step in. Premorbid roller walker in the community, furniture walker at home. She notes her is also here in the hospital with COVID-19 pneumonia and is in the room next door. REVIEW OF SYSTEMS: Did not offer any current complaints of chest pain, shortness of breath or abdominal discomfort. She feels that she is overall starting to improve. PHYSICAL EXAMINATION: GENERAL: She is a 76-year-old white female in no obvious distress. VITAL SIGNS: Last recorded temperature 36.3, pulse 60, respirations 15, blood pressure 133/59. NEUROLOGIC: She is currently in COVID isolation and is on 1 liter nasal cannula. She is alert, pleasant, oriented, appears to be a reasonable historian. HEENT: Facies are symmetric. EXTREMITIES: Functional range of motion of both upper and lower extremities. She does have chronic degenerative changes and has DJD noted of both hips and knees. There is no focal calf swelling. I would grade her strength at a 4 to 4-/5. Tone appeared to be intact. She is min assist for sit to stand and ambulate 120 feet contact guard with a front-wheeled walker. She did well in [address] [address] CONSULTATION Name: CRISTIANO JOSHI Room #: [facility] IN [facility].#: [id number] Admission: 03/24/21 Attend Phys: Anirudh Mccloud MD Discharge: 03/31/21 Date of : 45 Report #: [id number] occupational therapy and the OT noted she was able to ambulate to and from the bathroom. She could transfer on and off the toilet and she could get in and out of the shower with standby assistance. She is noted to be used to furniture walking and OT actually discharged her. ASSESSMENT: A 76-year-old white female with the following problem list: 1. COVID-19 pneumonitis. 2. Acute hypoxic respiratory failure, which is improving. 3. Possible superimposed community-acquired pneumonia. 4. Exogenous obesity. 5. Generalized weakness and debilitation with medical complexity. 6. Coronary artery disease. 7. Hypertension. 8. Hyperlipidemia. PLAN: The patient is doing better from a functional perspective and the occupational therapist actually discharged her today. She is ambulating up to 120 feet with a front-wheeled walker and premorbidly was a furniture walker or used a walker. She appears too high level to warrant an acute in-hospital inpatient rehabilitation stay and would anticipate she should be able to return directly home with home health care as she further medically stabilizes. Thank you for asking us to assist in this patient's care. <ELECTRONICALLY SIGNED> By: Manish Chan MD 04/02/21 [id number] Manish Chan MD /nt
== END 2021-03-31 16:08 | disposition home health service (06) | DRG 871 ==
LOC: ER 16:49 → EROBS 19:46 → 3W 19:46
PROVIDERS: Nurse Practitioner Family; Specialist; ADMIT Internal Medicine; ATTEND Internal Medicine
PROC: XW033E5 Introduction of Remdesivir Anti-infective into Peripheral Vein, Percutaneous Approach, New Technology Group 5 (ICD-10-PCS; principal; 2021-03-26)
DX: A41.9 Sepsis, unspecified organism (principal); U07.1 COVID-19; J12.82 Pneumonia due to coronavirus disease 2019; J96.01 Acute respiratory failure with hypoxia; N17.9 Acute kidney failure, unspecified; N30.00 Acute cystitis without hematuria; J44.0 Chronic obstructive pulmonary disease with (acute) lower respiratory infection; K21.9 Gastro-esophageal reflux disease without esophagitis; I10 Essential (primary) hypertension; E78.5 Hyperlipidemia, unspecified; I25.10 Atherosclerotic heart disease of native coronary artery without angina pectoris; R53.81 Other malaise; G89.29 Other chronic pain; M54.9 Dorsalgia, unspecified; M17.0 Bilateral primary osteoarthritis of knee; M16.0 Bilateral primary osteoarthritis of hip; E66.01 Morbid (severe) obesity due to excess calories; Z90.710 Acquired absence of both cervix and uterus; Z88.6 Allergy status to analgesic agent; Z88.2 Allergy status to sulfonamides; Z88.8 Allergy status to other drugs, medicaments and biological substances; Z95.5 Presence of coronary angioplasty implant and graft; Z68.28 Body mass index [BMI] 28.0-28.9, adult; Z87.891 Personal history of nicotine dependence; Z79.82 Long term (current) use of aspirin; Z79.899 Other long term (current) drug therapy
CPT/HCPCS: 10879